=== PATIENT | male | born 1970 | race Caucasian/White ===

== ENCOUNTER 2018-09-11 05:58 | Day surgery (SDC) | payer OTHER ==
[2018-09-11] MEDS: CEFAZOLIN 2 GM/50 ML (PMX) 50 ML IVPB (06:00)
[2018-09-11 07:01] LABS: ADD MAN DIFF? NO
[2018-09-11 07:03] LABS: BASOPHILS % 0.6 % (0.0-2.0); EOSINOPHILS # 0.3 10^3/ul (0.0-0.5); EOSINOPHILS % 5.4 % (0.0-7.0); HEMATOCRIT 43.6 % (42.0-52.0); HEMOGLOBIN 14.5 g/dl (14.0-18.0); LYMPHOCYTES # 1.9 10^3/ul (0.8-2.9); MEAN CORPUSCULAR HEMOGLOBIN 28.5 pg (29.0-33.0); MEAN CORPUSCULAR HGB CONC 33.3 g/dl (32.0-37.0); MEAN CORPUSCULAR VOLUME 85.7 fl (82.0-101.0); MONOCYTE # 0.4 10^3/ul (0.3-0.9); MONOCYTES % 7.9 % (0.0-11.0); NEUTROPHIL # 2.7 10^3/ul (1.6-7.5); NEUTROPHILS % 50.7 % (39.0-77.0); PLATELET COUNT 183 10^3/UL (140-415); RED BLOOD COUNT 5.09 10^6/ul (4.70-6.10); RED CELL DISTRIBUTION WIDTH 14.3 % (11.5-14.5)
[2018-09-11 07:03] LABS: WHITE BLOOD COUNT 5.3 10^3/ul (4.8-10.8)
[2018-09-11] MEDS: SOD CHLORIDE 0.9% 1,000 ML IV (07:16)
[2018-09-11 07:29] LABS: ALANINE AMINOTRANSFERASE 46 IU/L (13-69); ALBUMIN 3.7 g/dl (3.3-4.9); ALBUMIN/GLOBULIN RATIO 1.19; ALKALINE PHOSPHATASE 74 IU/L (42-121); ANION GAP 6 (5-13); ASPARTATE AMINO TRANSFERASE 37 IU/L (15-46); BILIRUBIN,INDIRECT 0.8 mg/dl (0-1.1); BILIRUBIN,TOTAL 0.8 mg/dl (0.2-1.3); BLOOD UREA NITROGEN 17 mg/dl (7-20); CALCIUM 8.8 mg/dl (8.4-10.2); CARBON DIOXIDE 29 mmol/L (21-31); CHLORIDE 106 mmol/L (97-110); CREATININE 0.73 mg/dl (0.61-1.24); Estimated GFR > 60 mL/min (>60); GLUCOSE 103 mg/dl (70-220); POTASSIUM 3.8 mmol/L (3.5-5.1); SODIUM 141 mmol/L (135-144); TOTAL PROTEIN 6.8 g/dl (6.1-8.1)
[2018-09-11 07:40] LABS: INR 1.06; PROTIME 13.9 Sec (11.9-14.9); PT RATIO 1.1
[2018-09-11 07:41] LABS: PARTIAL THROMBOPLASTIN TIME 29.2 Sec (23.0-35.0)
[2018-09-11] MEDS ORDERED: BUPIVACAINE 0.25% (MPF) 30 ML INJ (07:45)
[2018-09-11] MEDS ORDERED: MIDAZOLAM 1 MG/ML 2 ML INJ (08:07)
[2018-09-11] MEDS ORDERED: PROPOFOL 20 ML ×2 (08:07→08:39)
[2018-09-11] MEDS ORDERED: ROCURONIUM 50 MG INJ ×2 (08:07→08:39)
[2018-09-11] MEDS ORDERED: LIDOCAINE 2% (SDV) 5 ML INJ (08:07)
[2018-09-11] MEDS ORDERED: SUCCINYLCHOLINE CHLORIDE 100 MG/5 ML SYG IV (08:07)
[2018-09-11] MEDS ORDERED: ROPIVACAINE 0.5 % 30 ML VIAL (08:14)
[2018-09-11] MEDS ORDERED: FENTAnyl 50 MCG/ML VIAL (08:28)
[2018-09-11] MEDS ORDERED: ONDANSETRON 4 MG INJ (08:36)
[2018-09-11] MEDS ORDERED: FAMOTIDINE 20 MG INJ (08:36)
[2018-09-11] MEDS ORDERED: DEXAMETHASONE 4 MG/ML 5 ML INJ (08:36)
[2018-09-11] MEDS ORDERED: CEFAZOLIN 1 GM INJ (08:39)
[2018-09-11] MEDS: POLYMYXIN/BACITRACIN 1L IRRIG (09:04)
[2018-09-11] MEDS ORDERED: NEOSTIGMINE 3 MG/3 ML SYRINGE ×2 (09:11→09:18)
[2018-09-11] MEDS ORDERED: GLYCOPYRROLATE 0.4 MG INJ ×2 (09:11→09:18)
[2018-09-11] MEDS ORDERED: LABETALOL HCL 20MG INJ (09:16)
[2018-09-11] MEDS ORDERED: SUGAMMADEX SODIUM 200 MG/2 ML VIAL IV (09:20)
[2018-09-11] MEDS ORDERED: hydrALAzine 20 MG INJ (09:32)
[2018-09-11] MEDS: hydrALAzine 20 MG INJ IV (09:39)
[2018-09-11] MEDS: HYDROmorphONE 1 MG/5 ML IV SYRINGE IV ×2 (09:58→10:08)
[2018-09-11] MEDS ORDERED: LABETALOL HCL 20MG INJ IV (10:00)
[2018-09-11] MEDS ORDERED: DIPHENHYDRAMINE 50 MG INJ IV (10:00)
[2018-09-11] MEDS ORDERED: PROCHLORPERAZINE 10 MG INJ IV (10:00)
[2018-09-11] MEDS ORDERED: MEPERIDINE 25 MG INJ IV (10:00)
[2018-09-11] MEDS ORDERED: FENTAnyl 50 MCG/ML VIAL IV ×3 (10:00)
[2018-09-11] MEDS ORDERED: OXYCODONE/ACETAMINOPHEN (5/325) TAB PO (10:00)
[2018-09-11] MEDS ORDERED: HYDROmorphONE 1 MG/5 ML IV SYRINGE IV (10:00)
[2018-09-11] MEDS ORDERED: ONDANSETRON 4 MG INJ IV (10:00)
[2018-09-11] MEDS: HYDROCODONE/APAP (5/325) TAB PO (10:03)
== END 2018-09-11 11:30 | disposition home or self-care (01) ==
LOC: SDS 05:58
DX: K43.6 Other and unspecified ventral hernia with obstruction, without gangrene (principal)
CPT/HCPCS: 49653; 80053; 85025; 85610; 85730